=== PATIENT | female | born 1965 | race Caucasian/White ===

== ENCOUNTER 2020-11-26 12:23 | Inpatient (IN) | payer BC ==
[~2020-11-26] VITALS: Ht 162.6 cm; Wt 110.2 kg
[~2020-11-26 12:23] MED LIST: COZAAR100 MG PO; DEXAMETHASONE6 MG PO; GLUCOPHAGE500 MG PO; TESSALON PERLE100 MG PO; ZINC50 M1 PO; ZITHROMAX250 MG PO; ZOFRAN 4 MG TAB4 MG PO
[2020-11-26 13:17] LABS: HEMOGLOBIN 13.8 gm/dl (12.3-15.3); RED BLOOD COUNT 4.9 M/UL (4.00-5.10); WHITE BLOOD COUNT 13.4 K/UL (4.5-11.0)
[2020-11-26] MEDS ORDERED: MAXZIDE 37.5 M1 EACH PO (15:03)
[2020-11-26] MEDS ORDERED: SYNTHROID88 MCG PO (15:04)
[2020-11-26] MEDS ORDERED: FERROUS SULFAT325 MG PO (15:36)
[2020-11-26] MEDS ORDERED: VITAMIN D325 MC6 PO (15:37)
[2020-11-26] MEDS ORDERED: OMEPRAZOLE20 MG PO (15:38)
[2020-11-27 06:06] LABS: RED BLOOD COUNT 4.67 M/UL (4.00-5.10)
[2020-11-27 06:28] LABS: WHITE BLOOD COUNT 8.1 K/UL (4.5-11.0)
[2020-11-29 04:50] LABS: RED BLOOD COUNT 4.33 M/UL (4.00-5.10); WHITE BLOOD COUNT 7.7 K/UL (4.5-11.0)
[2020-11-29 05:07] LABS: BUN/CREATININE RATIO 28 (0-10)
--- NOTE | 2020-11-30 10:34 | NUR ---
PATIENT O2 SAT. ON RA 87%
[2020-11-30] MEDS ORDERED: COMBIVENT RESPIM4 GM INH (11:02)
[2020-11-30] MEDS ORDERED: ASPIRIN81 MG PO (11:08)
== END 2020-11-30 14:37 | disposition home or self-care (01) | DRG 177 ==
LOC: ER1 12:23 → CCU 14:32 → CDU 14:32 → CCU 18:53
PROVIDERS: Internal Medicine Pulmonary Disease; Physician Assistant; ADMIT Internal Medicine Infectious Disease
PROC: 8E0ZXY6 Isolation (ICD-10-PCS; 2020-11-26)
PROC: XW13325 Transfusion of Convalescent Plasma (Nonautologous) into Peripheral Vein, Percutaneous Approach, New Technology Group 5 (ICD-10-PCS; 2020-11-28)
PROC: XW033E5 Introduction of Remdesivir Anti-infective into Peripheral Vein, Percutaneous Approach, New Technology Group 5 (ICD-10-PCS; principal; 2020-11-29)
DX: U07.1 COVID-19 (principal); J12.82 Pneumonia due to coronavirus disease 2019; J96.01 Acute respiratory failure with hypoxia; N17.9 Acute kidney failure, unspecified; E11.9 Type 2 diabetes mellitus without complications; E86.0 Dehydration; I10 Essential (primary) hypertension; E03.9 Hypothyroidism, unspecified; Z68.41 Body mass index [BMI] 40.0-44.9, adult; E66.01 Morbid (severe) obesity due to excess calories; K21.9 Gastro-esophageal reflux disease without esophagitis; Z79.84 Long term (current) use of oral hypoglycemic drugs; Z79.890 Hormone replacement therapy; Z79.899 Other long term (current) drug therapy; Z82.49 Family history of ischemic heart disease and other diseases of the circulatory system
CPT/HCPCS: 36415; 36600; 71045; 80048; 80053; 82550; 82728; 82803; 82962; 83036; 83605; 83735; 84100; 84443; 85025; 85379; 85610; 85730; 86140; 86900; 86901; 86927; 87040; 94640; 94664; 94760; 96365; 96366; 96375; 99285; J0456; J0696; J1100; J1650; J7030

== ENCOUNTER → 2020-12-28 | Outpatient (CLI) | payer BC ==
[~2020-12-28] MED LIST changes: +ASPIRIN81 MG PO; +COMBIVENT RESPIM4 GM INH; +FERROUS SULFAT325 MG PO; +MAXZIDE 37.5 M1 EACH PO; +OMEPRAZOLE20 MG PO; +SYNTHROID88 MCG PO; +VITAMIN D325 MC6 PO
== END ==
LOC: EXRD 10:51
DX: R06.02 Shortness of breath (principal); R91.8 Other nonspecific abnormal finding of lung field
CPT/HCPCS: 71046

== ENCOUNTER → 2021-03-03 | Outpatient (CLI) | payer BC | LOC: EXRD 10:15 | DX: Z09 Encounter for follow-up examination after completed treatment for conditions other than malignant neoplasm (principal); Z86.16 Personal history of COVID-19; R91.8 Other nonspecific abnormal finding of lung field | CPT/HCPCS: 71046 ==

== ENCOUNTER → 2021-09-15 | Outpatient (CLI) | payer BC | LOC: LAB 09:14 | DX: E11.9 Type 2 diabetes mellitus without complications (principal) | CPT/HCPCS: 36415; 82565; 84520 ==

== ENCOUNTER → 2022-03-29 | Outpatient (CLI) | payer BC | LOC: KOH-I 09:40 | DX: M25.561 Pain in right knee (principal); M25.562 Pain in left knee; M17.0 Bilateral primary osteoarthritis of knee; M25.462 Effusion, left knee | CPT/HCPCS: 73562 ==